=== PATIENT | female | born 1975 | race African-American/Black ===

== ENCOUNTER 2020-06-10 01:27 | Emergency (ER) | payer MEDICAID ==
[~2020-06-10] VITALS: Ht 172.7 cm; Wt 118.2 kg
[~2020-06-10 01:27] MED LIST: DSS100 PO; FERR-89 PO; IBUP-2070 PO; LABE100T8 PO; PERCT PO
[2020-06-10] MEDS ORDERED: KETOROLAC TROMETHAMINE 30 MG/ML VIAL IM ONE (03:30)
[2020-06-10 04:30] VITALS: BP 124/65
== END 2020-06-10 05:16 | disposition home or self-care (01) ==
LOC: EMS 01:30
DX: K04.7 Periapical abscess without sinus (principal); F17.210 Nicotine dependence, cigarettes, uncomplicated
CPT/HCPCS: 96372; 99283; J1885